=== PATIENT | male | born 1995 | race American Indian/Alaskan Native ===

== ENCOUNTER 2020-01-12 07:16 | Emergency (ER) | payer SELFPAY ==
--- NOTE | 2020-01-12 07:38 | Emergency Department Report ---
Minor Respiratory - HPI Chief Complaint: Adult Asthma Stated Complaint: SOB Time Seen by Provider: 01/12/20 07:34 Duration: 2 Days Pain Location: Chest Severity: mild Minor Respiratory: Yes Cough, Yes Shortness of Breath, No Rhinorrhea, No Sore Throat, No Ear Pain, No Sick Contacts, No Hemoptysis, No Chest Pain, No Fever Other History: 24 yo asthmatic with cough. no sob. no fever. no chills. no sick contacts. ambulatory to ER. ED Review of Systems ROS: Stated complaint: SOB Other details as noted in HPI Comment: All other systems reviewed and negative ED Past Medical Hx - Past Medical History Previous Medical History?: Yes Hx Asthma: Yes - Surgical History Past Surgical History?: No - Family History Family history: no significant - Social History Smoking Status: Never Smoker Substance Use Type: Marijuana - Medications Home Medications: Home Medications Medication Instructions Recorded Confirmed Last Taken Type Albuterol INH(or & Nicu Only) 2 puff IH QID PRN #1 inhalation 01/12/20 Unknown Rx [ProAir HFA Inhaler] Azithromycin [Zithromax Z-MAYNOR] 250 mg PO DAILY #6 tablet 01/12/20 Unknown Rx Benzonatate [Tessalon Perles] 100 mg PO Q12H PRN #20 capsule 01/12/20 Unknown R x Cetirizine HCl [ZyrTEC] 10 mg PO DAILY #30 capsule 01/12/20 Unknown Rx Fluticasone [Flonase] 1 spray NS QDAY #1 bottle 01/12/20 Unknown Rx predniSONE [Deltasone] 20 mg PO DAILY #5 tablet 01/12/20 Unknown Rx Minor Respiratory Exam - Exam General: Vital signs noted. No distress. Alert and acting appropriately. HEENT: Yes Moist Mucous Membranes, No Pharyngeal Erythema, No Pharyngeal Exudates, No Rhinorrhea, No Conjuctival Injection, No Frontal Tenderness, No Maxillary Tenderness Ear: Neither TM Bulge, Neither TM Erythema, Neither EAC Pain, Neither EAC Discharge Neck: Yes Supple, No Adenopathy Lungs: Yes Good Air Exchange, Yes Wheezes, No Ronchi, No Stridor, No Cough, No Labored Respirations, No Retractions, No Use of Accessory Muscles, No Other Abnormal Lung Sounds Heart: Yes Regular, No Murmur Abdomen: Yes Normal Bowel Sounds, No Tenderness, No Peritoneal Signs Skin: No Rash, No Edema Neurologic: Alert and oriented, no deficits. Musculoskeletal: Unremarkable. ED Course Vital Signs 01/12/20 07:22 Temperature 97.8 F Pulse Rate 102 H Respiratory 20 Rate O2 Sat by Pulse 96 Oximetry ED Medical Decision Making - Radiology Data Radiology results: report reviewed, image reviewed nap - Medical Decision Making asthma ae no fever no hypoxia chest xray nap duoneb and steroids dc home with pcp follow up Vital Signs 01/12/20 07:22 Temperature 97.8 F Pulse Rate 102 H Respiratory 20 Rate O2 Sat by Pulse 96 Oximetry - Differential Diagnosis ashtma ae/covid/pna Critical care attestation.: If time is entered above; I have spent that time in minutes in the direct care of this critically ill patient, excluding procedure time. ED Disposition Clinical Impression: Asthma with acute exacerbation Disposition: DC-01 TO HOME OR SELFCARE Is pt being admited?: No Does the pt Need Aspirin: No Condition: Stable Instructions: Asthma (ED) Prescriptions: predniSONE [Deltasone] 20 mg PO DAILY #5 tablet Fluticasone [Flonase] 1 spray NS QDAY #1 bottle Albuterol INH(or & Nicu Only) [ProAir HFA Inhaler] 2 puff IH QID PRN #1 inhalation PRN Reason: Shortness Of Breath Benzonatate [Tessalon Perles] 100 mg PO Q12H PRN #20 capsule PRN Reason: Cough Azithromycin [Zithromax Z-MAYNOR] 250 mg PO DAILY #6 tablet Cetirizine HCl [ZyrTEC] 10 mg PO DAILY #30 capsule Referrals: PRIMARY MD LANEY [Primary Care Provider] - 3-5 Days LCAI BRANCH MD [Staff Physician] - 3-5 Days Time of Disposition: 07:38
[2020-01-12] MEDS ORDERED: predniSONE 20 MG TAB PO ONE (07:46)
[2020-01-12] MEDS ORDERED: ALBUTEROL 2.5 MG/3 ML NEBU IH ONE (07:46)
--- NOTE | 2020-01-12 08:16 | XRay Report ---
CHEST 2 VIEWS INDICATION: asthma wheezing. COMPARISON: None FINDINGS: Support devices: None. Heart: Within normal limits. Lungs/pleura: No acute air space or interstitial disease. No pneumothorax. Additional findings: None. IMPRESSION: Unremarkable chest films. Signer Name: Portillo Rivers Jr, MD Signed: 01/12/2020 8:12 AM Workstation Name: [id number]
== END 2020-01-12 08:32 | disposition home or self-care (01) ==
LOC: ED 07:16
DX: J45.901 Unspecified asthma with (acute) exacerbation (principal); F12.10 Cannabis abuse, uncomplicated; Z79.2 Long term (current) use of antibiotics; Z79.899 Other long term (current) drug therapy
CPT/HCPCS: 71046; 94640; 99283; J7512